=== PATIENT | female | born 1995 | race Hispanic/Latino ===

== ENCOUNTER 2019-04-13 09:53 | Emergency (ER) | payer OTHER, SELFPAY ==
[2019-04-13 10:32] LABS: #Eosinphils 0.1 thou/uL (0.0-0.7); #Lymphocytes 2.7 thou/uL (1.20-3.40); #Monocytes 0.4 thou/uL (0.11-0.59); #Neutrophils 5.8 thou/uL (1.40-6.50); %Basophils 0.5 % (0.0-1.0); %Eosinophils 1.4 % (0.0-10.0); %Lymphocytes 29.8 % (21.0-51.0); %Monocytes 4.9 % (0.0-10.0); %Neutrophils 63.5 % (42.0-75.0); Hemoglobin 13.9 g/dL (12.0-16.0); Mean Corpuscular HGB CONC 33.8 g/dL (32.0-36.0); Mean Corpuscular Volume 91.6 fL (78.0-98.0); Mean Platelet Volume 7.4 fL (7.4-10.4); Platelet Count 422 thou/uL (130-400); RBC Distribution Width 10.8 % (11.5-14.5); Red Blood Cell (RBC) Count 4.48 mill/uL (4.20-5.40); White Blood Cell (WBC) Count 9.1 thou/uL (4.8-10.8)
[2019-04-13 10:59] LABS: Bacteria/HPF None Seen HPF (None Seen); Bilirubin Negative (Negative); Blood, Urine Negative (Negative); Clarity Clear (Clear); Glucose, Urine (Dipstick) Normal (Negative); Leukocyte 75 Leu/uL (Negative); Nitrite Negative (Negative); Protein, Urine (Dipstick) Negative (Neg-Trace); RBC/HPF 0-3 HPF (0-3); Squamous Epithelial 0-3 HPF (0-3); Urobilinogen Normal mg/dL (Less than 2); WBC/HPF 0-3 HPF (0-3)
--- NOTE | 2019-04-13 13:29 | ULT ---
TRANSABDOMINAL AND TRANSVAGINAL PELVIC ULTRASOUND WITH OLMEDO SCALE, COLOR FLOW AND SPECTRAL DOPPLER IM AGIN04/13/19 HISTORY: Lower abdominal pain, pelvic pain. FINDINGS: The uterus measures 6.1 x 7.5 x 4.6 cm. The right ovary measures 2.1 x 2 x 2.9 cm. The left ovary lydia sures 1.6 x 1.1 x 2.4 cm. Flow is demonstrated to both ovaries. There is a 1.8 cm cyst in the right o vary and a 1.9 cm corpus luteum in the right ovary. A single live intrauterine gestation is seen with measurements corresponding to an estimated gestatio nal age of 6 weeks, 2 days and MIGUELANGEL at 12/05/2019. The crown-rump length measures 0.55 cm, and yolk sac measures 0.39 cm. The heart rate measures 120 beats per minute. No subchorionic hemorrhage is s een. No free fluid is noted in the cul-de-sac. IMPRESSION: Single live IUP of 6 weeks, 2 days estimated gestational age and MIGUELANGEL at 12/05/2019. POS: ELSA
== END 2019-04-13 13:35 | disposition home or self-care (01) ==
LOC: ERS 09:53
DX: O20.0 Threatened abortion (principal); Z3A.01 Less than 8 weeks gestation of pregnancy
CPT/HCPCS: 36415; 76856; 81003; 81015; 84702; 85025; 86900; 86901

== ENCOUNTER 2019-11-03 17:46 | Day surgery (SDC) | payer SELFPAY ==
[2019-11-03 18:20] VITALS: BP 114/81; TEMP 98.1; BMI 30.7
[2019-11-03] MEDS ORDERED: hydrALAZINE 20 MG/ML VIAL SLOW IVP PRN (18:33)
[2019-11-03] MEDS ORDERED: diphenhydrAMINE 25 MG CAP PO SCH (19:00)
[2019-11-03 19:45] LABS: Bacteria/HPF None Seen HPF (None Seen); Bilirubin Negative (Negative); Blood, Urine Negative (Negative); Clarity Clear (Clear); Glucose, Urine (Dipstick) Normal (Negative); Leukocyte 75 Leu/uL (Negative); Nitrite Negative (Negative); Protein, Urine (Dipstick) 20 mg/dL (Neg-Trace); Squamous Epithelial 0-3 HPF (0-3)
[2019-11-03 19:51] LABS: Urine Culture Reflex Yes Yes
--- NOTE | 2019-11-03 21:44 | PDOC.FPROB ---
FMR OB H&P: HPI - History of Present Illness Chief Complaint: back pain, ctx Indentification: 24 yo @ 35.3 weeks History of Present Illness: 24 yo F comes in with back pain and reporting occasional ctx. States started having some back pain yesterday and having some ctx overnight. Reports had a few more ctx today. Reports back pain worsened so came in. Pt took tylenol an hour ago and hasn't noticed much difference. Pt reports pain as cramping. Pt denies any fever, chills, cough, chest pain or SOB. Denies any n/v/d/c. Denies any burning urination or blood in urine. Denies any LOF, vaginal bleeding, discharge or irritation. Reports FM. Pt denies any swelling or headaches. Primary Care Physician: JUAN FMR OB H&P: Current - Care : 6 Para: 1132 Gestational age: 35.3 wks Due date: 12/05/2019 - OB Labs Blood type: unknown RH: unknown Antibody Screen: unknown HIV: unknown RPR: unknown HepBsAg: unknown Quad screen: unknown Gonorrhea: unknown Chlamydia: unknown FMR OB H&P: History - Past Medical History PMH: None - OB History OB History: Reports 1 prior delivery @ 35-36 wks and one at full term. 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: Denies any abnormal pap smears or STD's - Surgical History Sx History: None - Social History Social History: Denies any smoking, drinking or illicit drug use - Family History Family History: Noncontributory FMR OB H&P: Medications - Current Home Medications: Medication Instructions Recorded Confirmed Type Cephalexin [Keflex] 500 mg PO BID #20 capsule 11/03/19 Rx Pnv No.103/Folic/Om3s/Fish Oil 1 each PO DAILY 11/03/19 11/03/19 History [ Gummies] diphenhydrAMINE [Benadryl] 25 mg PO NOW cap 11/03/19 Rx Allergies/Adverse Reactions: Allergies Allergy/AdvReac Type Severity Reaction Status Date / Time No Known Allergies Allergy Unverified 11/03/19 18:21 FMR OB H&P: ROS - Review of Systems General: denies: fever/chills, weight/appetite/sleep changes Eyes: denies: vision changes, double vision, scotomas ENT: denies: rhinorrhea, frequent nose bleed, sinus pain/pressure Cardiovascular: denies: chest pain, edema Respiratory: denies: cough, congestion, shortness of breath Gastrointestinal: denies: abdominal pain, cramping, nausea, vomiting, diarrhea, constipation Genitourinary (Female): reports: contractions, vaginal pressure. denies: incontinence, dysuria, hematuria, vaginal discharge, vaginal pain, vaginal bleeding Musculoskeletal: reports: pain (reports back pain) Neurologic: denies: numbness, weakness Integumentary: denies: itching, rash Psychological: denies: depression, anxiety FMR OB H&P: Vital Signs - Maternal Vital signs: Vital Signs - First Documented Temp Pulse Resp BP 98.1 F 123 H 18 114/81 11/03/19 17:59 11/03/19 17:59 11/03/19 17:59 11/03/19 17:59 - Heart Tones Baseline: 150 Variability: moderate Acceleration: present Deceleration: absent Category: category 1 [place] contractions every: None noted FMR OB H&P: Physical Exam - Physical Exam General: NAD, awake, alert and oriented HEENT: normocephalic and atraumatic, grossly normal vision, grossly normal hearing Neck: supple, FROM, trachea midline Heart: RRR, normal S1/S2, no murmurs/rubs/gallops, pulses present, no edema General: CTAB, no respiratory distress, good air movement, no rales/rhonchi, no wheezing, no retractions Abdomen: soft, gravid, fundus(cm), non-tender, bowel sound present, no masses, other (No CVA tenderness noted) Musculoskeletal: normal gait and station, pulses present, FROM in all four extremities Neurological: sensation to pain,touch and proprioception grossly normal Skin: no rash, capillary refill <2 seconds - Pelvic Exam SVE: 3/50/-2 FMR OB H&P: Results - Labs Lab results: Laboratory Results - last 24 hr 11/03/19 19:33 Urine Color Yellow Urine Clarity Clear Urine pH 7.0 Ur Specific [place] 1.030 Urine Protein 20 Urine Glucose (UA) Normal Urine Ketones Negative Urine Blood Negative Urine Nitrite Negative Urine Bilirubin Negative Urine Urobilinogen 2.0 A Ur Leukocyte Esterase 75 A Urine RBC 4-6 A Urine WBC 11-20 A Ur Squamous Epith Cells 0-3 Urine Bacteria None Seen Urine Culture Reflexed Yes A FMR OB H&P: A/P - Problem List (1) Status: Acute Disposition: 24 yo @ 35.3 weeks comes in with concern for ctx and abdominal/back pain -Will check Urinalysis. -Will give benadryl as she recently took tylenol to see if helps. -will continue to monitor of FHR monitor. Cat 1 strip. No ctx noted. -Vaginal exam shows 3/-2. -Did not report pain to be heartburn or nausea related. May consider medicine to tx if pain doesn't improve with above. Dispo: will await results and likely d/c home UTI vs round ligament/abdominal pain related to . Discussion: Date/Time: 11/03/192142 This H&P was discussed with [] and [] who agree with the above documentation and plan.
--- NOTE | 2019-11-04 00:33 | PDOC.EVN ---
Event Note - Event Note Event Note: U/A shows concern for underlying infection. Will send for culture. Will send pt home on keflex abx. Will follow up on cultures. Discussed return precautions. Pt ready for d/c.
== END 2019-11-03 20:25 | disposition home or self-care (01) ==
LOC: L&D/OP 17:46
PROVIDERS: ATTEND Obstetrics & Gynecology
DX: O99.89 Other specified diseases and conditions complicating pregnancy, childbirth and the puerperium (principal); M54.9 Dorsalgia, unspecified; O47.03 False labor before 37 completed weeks of gestation, third trimester; O09.293 Supervision of pregnancy with other poor reproductive or obstetric history, third trimester; O09.213 Supervision of pregnancy with history of pre-term labor, third trimester; Z3A.35 35 weeks gestation of pregnancy
CPT/HCPCS: 81001; 87086; 99283

== ENCOUNTER 2019-11-25 16:43 | Inpatient (IN) | payer OTHER ==
[2019-11-25 17:18] VITALS: BMI 31.2
[2019-11-25] MEDS ORDERED: hydrALAZINE 20 MG/ML VIAL SLOW IVP PRN ×2 (18:25→20:30)
--- NOTE | 2019-11-25 18:26 | PDOC.FPROB ---
FMR OB H&P: HPI - History of Present Illness Chief Complaint: Contractions Indentification: at 38.4 wks by LMP and c/w 9 wk sono History of Present Illness: Pt is a 24 yo at 38.4 wks by LMP and c/w 9 wk sono who presents with contractions. Contractions started at 12 pm 11/25/19. They are q10-12 mins. She denies vaginal bleeding, LOF, discharge. She was seen at [facility] yesterday and was 3.5 cm. Otherwise she is doing well. Denies vision changes, shortness of breath worse than normal, chest pain, and worse swelling LE. 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 - Surgical History Sx History: cabrera - Social History Social History: Denies tobacco, drug, alcohol use - Family History Family History: non-contributory FMR OB H&P: Medications - Current Home Medications: Medication Instructions Recorded Confirmed Type Pnv No.103/Folic/Om3s/Fish Oil 1 each PO DAILY 11/03/19 11/25/19 History [ Gummies] Allergies/Adverse Reactions: Allergies Allergy/AdvReac Type Severity Reaction Status Date / Time No Known Allergies Allergy Verified 11/25/19 17:12 FMR OB H&P: ROS - Review of Systems General: denies: fever/chills, weight/appetite/sleep changes Eyes: denies: eye pain, vision changes ENT: denies: nasal congestion, rhinorrhea Cardiovascular: denies: chest pain, palpitation, edema Respiratory: denies: cough, shortness of breath Gastrointestinal: reports: cramping. denies: abdominal pain, indigestion, nausea, vomiting, diarrhea, constipation Genitourinary (Female): denies: dysuria, hematuria Musculoskeletal: denies: pain, stiffness Neurologic: denies: numbness, syncope, seizures Integumentary: denies: itching, rash Endocrine: denies: cold intolerance, heat intolerance Hematologic/Lymphatic: denies: prolonged or excessive bleeding Psychological: denies: depression, anxiety FMR OB H&P: Vital Signs - Maternal Vital signs: Vital Signs - First Documented Temp Pulse Resp BP 98.7 F 109 H 18 113/70 11/25/19 17:11 11/25/19 17:11 11/25/19 17:11 11/25/19 17:11 - Heart Tones Variability: moderate Acceleration: present FMR OB H&P: Physical Exam - Physical Exam General: NAD, awake, alert and oriented HEENT: PERRLA, EOMI Neck: FROM, no JVD Heart: RRR, normal S1/S2, no murmurs/rubs/gallops, no edema General: CTAB, no respiratory distress, good air movement Abdomen: soft, gravid, non-tender Musculoskeletal: normal gait and station, pulses present Neurological: cranial nerves II through XII intact, sensation to pain,touch and proprioception grossly normal Skin: good tugor, capillary refill <2 seconds Lymphatic: no purpura, no petechia Psychiatric: intact recent and remote memory, good judgement and insight - Pelvic Exam Cervix: no masses, no lesions SVE: - FMR OB H&P: A/P - Problem List (1) Term Current Visit: Yes Status: Acute Code(s): Z34.90 - ENCNTR FOR SUPRVSN OF NORMAL , UNSP, UNSP TRIMESTER Disposition: Pt is a 24 yo at 38.4 wks dated by LMP and c/w with 9 wk sono who presents for contractions: # IUP, Term w/ contractions Initial check . Yesterday was 3.5 cm. Check in 2 hours. If progression will keep for labor then will admit. - monitor # GBS negative # Anemia of - monitor Dispo: observe for 2 hours Discussion: Date/Time: 11/25/191825 This H&P was discussed with [] and [] who agree with the above documentation and plan. Addendum - Attending - Attending Attestation Date/Time: 11/25/19 8174 I personally evaluated the patient and discussed the management with Dr. Bruce I agree with the History, Examination, Assessment and Plan documented above with any addition or exceptions noted below. 24 yo female at 38.4 wks here for evaluation of labor Patient presents for painful contractions since last night that have progressed in pain and frequency. No VB or LOF. VS reviewed. FHT cat 1 - sIUP: IOB labs reviewed. 2T/3T negative. GBS negative. - Labor: Repeat SVE in 2 hours. Will determine if latent or active labor vs latent labor with suspicion to progress quickly into active labor. - anemia of - hx of SAB x 3 Repeat exam in 2 hours or sooner if indicated. Andie
[2019-11-25] MEDS ORDERED: Butorphanol Tartrate 1 MG/ML VIAL SLOW IVP ONE (18:45)
[2019-11-25] MEDS ORDERED: Butorphanol Tartrate 1 MG/ML VIAL IM SCH (18:45)
[2019-11-25] MEDS ORDERED: Misoprostol 200 MCG TAB PR PRN (20:30)
[2019-11-25] MEDS ORDERED: Carboprost 250 MCG/ML AMP IM PRN (20:30)
[2019-11-25] MEDS ORDERED: Promethazine HCl 25 MG/ML VIAL IM PRN (20:30)
[2019-11-25] MEDS ORDERED: Lidocaine 1% (PF) 30 ML VIAL SC PRN (20:30)
[2019-11-25] MEDS ORDERED: Ondansetron PF 4 MG/2 ML Vial IVP PRN (20:30)
[2019-11-25] MEDS ORDERED: Methylergonovine 0.2 MG/ML VIAL IM PRN (20:30)
[2019-11-25] MEDS ORDERED: NS / Oxytocin 40 units/1000ml 1,000 ML IV PRN (20:30)
[2019-11-25] MEDS ORDERED: Ibuprofen 800 MG TAB PO PRN (20:30)
[2019-11-25] MEDS: Lactated Ringer's 1,000 ML IV SCH (21:00)
[2019-11-25 21:34] LABS: Hemoglobin 11.1 g/dL (12.0-16.0); Mean Corpuscular HGB CONC 31.6 g/dL (32.0-36.0); Mean Corpuscular Hemoglobin 24.2 pg (27.0-31.0); Mean Corpuscular Volume 76.8 fL (78.0-98.0); Mean Platelet Volume 8.3 fL (7.4-10.4); Platelet Count 372 thou/uL (130-400); RBC Distribution Width 13.3 % (11.5-14.5); Red Blood Cell (RBC) Count 4.58 mill/uL (4.20-5.40); White Blood Cell (WBC) Count 13.4 thou/uL (4.8-10.8)
[2019-11-25 22:12] LABS: Syphilis Antibody Nonreactive (Nonreactive); Syphilis Antibody Index 0.05 S/CO (<1.00 Non-Reactive)
--- NOTE | 2019-11-25 22:41 | PDOC.LDPN ---
Labor & Delivery Progress Note - Objective Vital signs reviewed and normal: yes General: breathing through contractions Uterine fundus: palpable contractions Dilation: 5 FHT: category 1 - Assessment (1) Term Code(s): Z34.90 - ENCNTR FOR SUPRVSN OF NORMAL , UNSP, UNSP TRIMESTER Current Visit: Yes Status: Acute -: Pt made change to 5 cm/80/-1. Will keep for expectant management. Next check at 0030. Cat 1 strip, FHT"s 150. Addendum - Attending - Attending Attestation Date/Time: 11/25/19 1984 I personally evaluated the patient and discussed the management with Dr. Bruce I agree with the History, Examination, Assessment and Plan documented above with any addition or exceptions noted below. Admit for labor. Repeat exam in 2 hours. Andie
[2019-11-25 22:47] LABS: HBSAg Index 0.19 S/CO (0-0.99); Hep B Surf Ag Non-Reactive S/CO (NonReactive)
[2019-11-25] MEDS ORDERED: Fentanyl 4 mcg/Bup 0.1% Cadd 0 ML ONE (23:16)
[2019-11-26] MEDS: Lactated Ringer's 1,000 ML IV SCH (00:38)
--- NOTE | 2019-11-26 01:04 | PDOC.LDPN ---
Labor & Delivery Progress Note - Subjective Subjective: comfortable, vaginal pressure - Objective Vital signs reviewed and normal: yes General: breathing through contractions Uterine fundus: palpable contractions Dilation: 6 Station: -3 FHT: category 1 - Assessment (1) Term Code(s): Z34.90 - ENCNTR FOR SUPRVSN OF NORMAL , UNSP, UNSP TRIMESTER Current Visit: Yes Status: Acute -: Pt is a 24 yo at 38.5 wks dated by LMP and c/w with 9 wk sono who presents for contractions: # IUP, Term 1. Continue current treatment - no intervention at this time. Cat 1 strip. # GBS negative # Anemia of - 11.1 Dispo: recheck in 4 hours Addendum - Attending - Attending Attestation Date/Time: 11/26/19 0201 I personally evaluated the patient and discussed the management with Dr. Bruce I agree with the History, Examination, Assessment and Plan documented above with any addition or exceptions noted below. 24 yo female at 38.5 wks admitted of active labor. /-2 cat 1 tracing Epidural attempted but placement too painful for patient. Aborted due to request of patient. Will see if MD can place instead of [facility] if patient still desires epidural. Repeat exam in 2 hours or sooner if indicated. Andie
--- NOTE | 2019-11-26 04:13 | PDOC.LDPN ---
Labor & Delivery Progress Note - Subjective Subjective: comfortable - Objective Vital signs reviewed and normal: yes General: NAD Uterine fundus: non tender Dilation: 6 Effacement: 75% Station: -1 FHT: category 1, variability present [place] contractions every: 6 - Assessment (1) Term Code(s): Z34.90 - ENCNTR FOR SUPRVSN OF NORMAL , UNSP, UNSP TRIMESTER Current Visit: Yes Status: Acute -: 24 yo at 38.5 wks dated by LMP and c/w with 9 wk sono who presents for contractions: # IUP, Term -unchanged at /-1, start pit. Cat 1 strip. # GBS negative # Anemia of - 11.1 Dispo: monitor labor progression Addendum - Attending - Attending Attestation Date/Time: 11/26/19 0653 I personally evaluated the patient and discussed the management with Dr. Linton I agree with the History, Examination, Assessment and Plan documented above with any addition or exceptions noted below. SVE unchanged. Will start pit. Repeat exam in 2 to 4 hours. Cat 1 tracing LeslieayMD
[2019-11-26] MEDS ORDERED: NS w/ Oxytocin 10 units 500 ML ONE (04:52)
[2019-11-26] MEDS ORDERED: NS w/ Oxytocin 10 units 500 ML IV SCH (05:00)
--- NOTE | 2019-11-26 08:19 | PDOC.LDPN ---
Labor & Delivery Progress Note - Objective Vital signs reviewed and normal: yes General: NAD Dilation: 6 Effacement: 90% Station: 0 FHT: category 1 (135/mod/+accel/no decel) Other exam findings: 2-4 min AROM: clear fluid IUPC placed: yes Plan: continue plan of care, pitocin for augmentation -: 24 yo at 38.5 wks dated by LMP and c/w with 9 wk sono who presents for contractions: # IUP, Term - cervical check /0. AROM done with clear fluid. IUPC placed - Cat 1 strip. - continue pitocin, currently @ 12. Difficult to titrate as hard to pickle sorter ctx on strip. # GBS negative # Anemia of - 11.1 Dispo: Continue pit, recheck in 2 hours
--- NOTE | 2019-11-26 09:47 | PDOC.OPDEL ---
OB Operative/Delivery Note Delivery Dr/Surgeon: John/Johnnie Pre-Delivery Diagnosis: active labor Procedure/Post Delivery Dx: spontaneous vaginal delivery Weeks gestation: 38 (38.5) - Additional Findings/Plan Placenta delivered: spontaneous Repaired Obstetrical Laceration: none Compilations/Other Findings: Delivering Physician: John Attending: Johnnie Procedure: Spontaneous Vaginal Delivery Anesthesia: no epidural, stadol given during labor QBL: 75 ml Pre-op Diagnosis: 1. Term intrauterine in labor 2. Hx of anemia in Post-op Diagnosis: 1. Term intrauterine , delivered 2. same as above Indications: A 24 y/o female presents in active labor. Delivery Note: This is 24yo F now 3033 @ 38.5 wks who delivered a viable F infant at 0921 on 11/26/2019. Following an uneventful antepartum course, a vigorous female was delivered over an intact perineum in the occipitoanterior position. Anterior Shoulder and then remainder of the body delivered. No nuchal cord. The head was held down and mouth and nares were bulb suctioned. Cord clamped after delayed cord clamping and cut and cord blood collected. Placenta delivered intact in the Bui presentation with a 3 vessel cord noted. Fundal massage was performed and the fundus was firm. The cervix and vagina were inspected and found to be free of lacerations. went to nursery in good condition for routine care. Apgars were 9/9 at 1 & 5 minutes, respectively. Patient tolerated delivery well and went to after routine recovery/care. Post delivery plan: routine recovery
[2019-11-26] MEDS ORDERED: NS / Oxytocin 40 units/1000ml 1,000 ML ONE ×2 (09:53→11:56)
[2019-11-26] MEDS ORDERED: Misoprostol 200 MCG TAB VAG PRN (11:21)
[2019-11-26] MEDS ORDERED: Bisacodyl 10 MG SUPP PR PRN (11:21)
[2019-11-26] MEDS ORDERED: Ondansetron PF 4 MG/2 ML Vial IVP PRN (11:21)
[2019-11-26] MEDS ORDERED: Methylergonovine 0.2 MG/ML VIAL IM PRN (11:21)
[2019-11-26] MEDS ORDERED: Milk Of Magnesia 30 ML UDCUP PO PRN (11:21)
[2019-11-26] MEDS ORDERED: Lanolin Ointment 7 GM TUBE TOP PRN (11:21)
[2019-11-26] MEDS ORDERED: diphenhydrAMINE 25 MG CAP PO PRN (11:21)
[2019-11-26] MEDS ORDERED: Promethazine HCl 25 MG/ML VIAL IM PRN (11:21)
[2019-11-26] MEDS ORDERED: Preparation H Ointment 28 GM TUBE PR PRN (11:21)
[2019-11-26] MEDS ORDERED: hydrALAZINE 20 MG/ML VIAL SLOW IVP PRN (11:21)
[2019-11-26] MEDS: Ibuprofen 800 MG TAB PO SCH ×2 (12:56→20:40)
[2019-11-26] MEDS ORDERED: Acetaminophen 325 MG TAB PO SCH (16:15)
[2019-11-26] MEDS: Ferrous Sulfate 325 MG TAB PO SCH (18:02)
[2019-11-26] MEDS: Docusate Calcium (SURFAK) 240 MG CAP PO SCH (20:40)
[2019-11-27] MEDS: Ibuprofen 800 MG TAB PO SCH ×2 (05:22→14:44)
--- NOTE | 2019-11-27 06:21 | PDOC.PP ---
Post Progress Note Post Day #: 1 Subjective: Patient doing well. Ambulating, passing flatus, urinating well. Denies pain. Lochia is about the same as a period but decreasing. Tolerating PO. PO intake tolerated: yes Flatus: yes Ambulation: yes Vital Signs (12 hours) Temp Pulse Resp BP Pulse Ox 11/27/19 05:20 98.5 F 85 16 100/54 L 11/27/19 00:05 97.5 F L 86 16 105/56 L 11/26/19 19:55 98.6 F 97 16 104/56 L 98 Weight Weight 82.554 kg - Physical Examination General: NAD Cardiovascular: RRR Respiratory: non-labored breathing Abdominal: no distention, appropriately TTP Fundus firm & at: below umbilicus Neurological: no gross focal deficits Psychiatric: normal affect Result Diagrams: 11/25/19 21:17 Additional Labs: Post Labs Blood Type O POSITIVE 11/25/19 21:17 Hep Bs Antigen Non-Reactive S/CO (NonReactive) 11/25/19 21:17 - Assessment/Plan Care - no concerns - bottle feeding - considering IUD for contraception - denies pain Anemia of - minimal blood loss during delivery, asymptomatic Dispo: Patient recovering well and would like to be discharged. Plan to follow up at [facility] in 2 weeks. Addendum - Attending - Attending Attestation Date/Time: 11/27/19 5725 I personally evaluated the patient and discussed the management with Dr. Lopez. I agree with the History, Examination, Assessment and Plan documented above with any addition or exceptions noted below.
[2019-11-27] MEDS ORDERED: Adacel (T-DAP) 0.5 ML SYRINGE IM ONE (09:00)
[2019-11-27] MEDS ORDERED: Prenatal Vitamin 1 TAB PO SCH (09:00)
[2019-11-27] MEDS: Ferrous Sulfate 325 MG TAB PO SCH (09:04)
[2019-11-27] MEDS: Docusate Calcium (SURFAK) 240 MG CAP PO SCH (09:27)
[2019-11-27 13:22] VITALS: BP 108/76; TEMP 97.7
== END 2019-11-27 16:00 | disposition home or self-care (01) | DRG 807 ==
LOC: L&D/OP 16:43 → L&D 11-26 02:38 → 3SW 11-26 12:29
PROVIDERS: ADMIT Family Medicine; ATTEND Family Medicine
PROC: 10E0XZZ Delivery of Products of Conception, External Approach (ICD-10-PCS; principal; 2019-11-26)
DX: O99.02 Anemia complicating childbirth (principal); Z37.0 Single live birth; Z3A.38 38 weeks gestation of pregnancy; D64.9 Anemia, unspecified
CPT/HCPCS: 36415; 85027; 86780; 86850; 86900; 86901; 87340; 99285; J0595; J2590

== ENCOUNTER 2021-02-14 01:03 | Emergency (ER) | payer OTHER ==
[2021-02-14] MEDS ORDERED: Ibuprofen 800 MG TAB ONE (02:46)
[2021-02-14] MEDS ORDERED: Acetaminophen 325 MG TAB ONE (02:46)
== END 2021-02-14 05:45 | disposition home or self-care (01) ==
LOC: ERS 01:03
DX: U07.1 COVID-19 (principal); J12.82 Pneumonia due to coronavirus disease 2019
CPT/HCPCS: 36415; 71045; 71275; 84484; 93005

== ENCOUNTER 2025-03-05 16:07 | Emergency (ER) | payer OTHER, SELFPAY ==
[2025-03-05] MEDS ORDERED: Ondansetron PF 4 MG/2 ML Vial ONE (17:34)
== END 2025-03-05 17:38 | disposition home or self-care (01) ==
LOC: ERS 16:07
DX: S61.411A Laceration without foreign body of right hand, initial encounter (principal); R20.2 Paresthesia of skin; W25.XXXA Contact with sharp glass, initial encounter
CPT/HCPCS: 99284